=== PATIENT | male | born 1960 | race Caucasian/White ===

== ENCOUNTER 2024-09-18 14:44 | Emergency (ER) | payer OTHER, SELFPAY ==
[2024-09-18 14:51] VITALS: BP 150/85; PULSE 93; RESP 16; TEMP 36.8; O2SAT 99
--- NOTE | 2024-09-18 15:10 | ED.GENADULT ---
HPI - General Adult General Chief complaint: Abdominal Pain Stated complaint: ABD HERNIA Time Seen by Provider: 09/18/24 14:57 Source: patient and RN notes reviewed Mode of arrival: ambulatory Limitations: no limitations History of Present Illness HPI narrative: Patient presents today complaining of pain and redness to his umbilical hernia x4 days that has been worsening since onset. Hernia has been present for 3 years and has never been painful. He is also complaining of constipation and bloating sensation over the past week. Related Data Home Medications ?Medication ?Instructions ?Recorded ?Confirmed ?Last Taken ?Type albuterol sulfate 90 mcg/actuation 1 puff inhalation Q4H PRN 03/05/22 06/30/24 Unknown History aerosol inhaler (ProAir HFA) umeclidinium 62.5 mcg-vilanterol 1 inh inhalation DAILY 03/05/22 09/18/24 Unknown History 25 mcg/actuation powdr for inhalation (Anoro Ellipta) ascorbic acid (vitamin C) 1,000 mg 1 g PO DAILY 06/30/24 06/30/24 Unknown History capsule cholecalciferol (vitamin D3) 25 25 mcg PO DAILY 06/30/24 06/30/24 Unknown History mcg (1,000 unit) capsule fluticasone propionate 50 1 spray intranasal DAILY 06/30/24 06/30/24 Unknown History mcg/actuation nasal spray,suspension (Flonase Allergy Relief) lactobacillus combination no.9 4 4,000 mmu cells PO DAILY 06/30/24 06/30/24 Unknown History billion cell capsule (Adult 50 Plus Probiotic) omeprazole 20 mg capsule,delayed 20 mg PO DAILY 06/30/24 06/30/24 Unknown History release zinc sulfate 50 mg zinc (220 mg) 50 mg PO DAILY 06/30/24 06/30/24 Unknown History tablet Allergies Allergy/AdvReac Type Severity Reaction Status Date / Time fluticasone furoate (From AdvReac thrush Verified 09/18/24 14:48 Breo Ellipta) vilanterol (From Breo AdvReac thrush Verified 09/18/24 14:48 Ellipta) PMFSH Past Medical History Medical History GERD (gastroesophageal reflux disease) COPD exacerbation Chronic obstructive pulmonary disease Surgical History Surgical History (Reviewed 09/18/24 @ 15:11 by Marta Jean-Baptiste, [facility], ) H/O inguinal hernia repair Social History Social History (Reviewed 09/18/24 @ 15:11 by Marta Jean-Baptiste, [facility], ) Social History: 06/23/24 very confident with medical forms Smoking status: Never smoker Alcohol intake: current Substance use: never Substance use type: does not use Do You Feel Safe in your Home?: Yes Lack of Transportation: No Lack of Food: Never True Current Housing: I Have Housing Concerned About Future Housing: No Difficulty Paying Gas/Electric Bills: No Difficulty Paying for Meds: No Currently Unemployed: No Education: Associate Degree Difficulty w/ Childcare or Family Care: No Living arrangements: with family Occupation/Education: occupation 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 Please see nursing chart for further information. There is no relevant family history pertinent to the presenting complaint Exam Narrative: GENERAL: Well-appearing, well-nourished, and in no acute distress. HEAD: Normocephalic, atraumatic. EYES: EOMI. No redness or drainage. Conjunctivae normal. ENT: Mucous membranes pink and moist. NECK: Normal AROM. CHEST: No respiratory distress. Clear to auscultation. HEART: Regular rate and rhythm. No murmur appreciated. ABDOMEN: Soft, nondistended, hyperactive bowel sounds throughout. Obvious umbilical hernia that is erythematous and firm to touch. Not reducible. Tender to palpation. Remainder of abdomen is nontender. EXTREMITIES: Normal range of motion. No edema. SKIN: Warm, dry, no rash. Capillary refill normal. Normal skin turgor. NEURO: No focal deficits. Alert and oriented x3. Gait steady. PSYCH: Normal affect. No signs of depression or anxiety. Course Course Level of Care: Express Care Visit Vital Signs Vital signs: Vital Signs Temperature 98.2 F 09/18/24 14:51 Pulse Rate 93 09/18/24 14:51 Respiratory Rate 16 09/18/24 14:51 Blood Pressure 150/85 H 09/18/24 14:51 Pulse Oximetry 99 09/18/24 14:51 Temperature 98.2 F 09/18/24 14:51 Pulse Rate 93 09/18/24 14:51 Respiratory Rate 16 09/18/24 14:51 Blood Pressure 150/85 H 09/18/24 14:51 Pulse Oximetry 99 09/18/24 14:51 Reviewed Transfer Transfered to: [facility] Transportation: Other (Private vehicle) Transfer rationale: Incarcerated umbilical hernia. Accepting physician: Andrews. Report given to Giovanni Lima NP Medical Decision Making MDM Narrative Medical decision making narrative: 64-year-old male patient presents today with painful umbilical hernia x4 days. Hernia been present for the past 3 years without issue. Upon exam, hernia is irreducible and firm as well as erythematous. Due to limitations of [facility], patient will be transferred to the emergency department at [facility] for further evaluation. Vital signs stable. Patient placed NPO. Differential Diagnosis Differential Diagnosis: Hernia, bowel obstruction Vital Signs Vital Signs: Vital Signs Temperature 98.2 F 09/18/24 14:51 Pulse Rate 93 09/18/24 14:51 Respiratory Rate 16 09/18/24 14:51 Blood Pressure 150/85 H 09/18/24 14:51 Pulse Oximetry 99 09/18/24 14:51 Temperature 98.2 F 09/18/24 14:51 Pulse Rate 93 09/18/24 14:51 Respiratory Rate 16 09/18/24 14:51 Blood Pressure 150/85 H 09/18/24 14:51 Pulse Oximetry 99 09/18/24 14:51 Critical Care Time Critical Care Time Critical Care Time: No Discharge Plan Discharge Clinical Impression: Incarcerated umbilical hernia Patient Disposition: Acute Care Hospital Condition: Stable Instructions: Antibiotic Form Patient Language: [place] Citizen Prescriptions: No Action albuterol sulfate [ProAir HFA] 90 mcg/actuation HFA aerosol inhaler 1 puff inhalation Q4H PRN Anoro Ellipta 62.5-25 mcg/actuation blister with device 1 inh inhalation DAILY zinc sulfate 50 mg zinc (220 mg) tablet 50 mg PO DAILY cholecalciferol (vitamin D3) 25 mcg (1,000 unit) capsule 25 mcg PO DAILY ascorbic acid (vitamin C) 1,000 mg capsule 1 g PO DAILY fluticasone propionate [Flonase Allergy Relief] 50 mcg/actuation spray,suspension 1 spray intranasal DAILY Rx Instructions: administer into each nostril Adult 50 Plus Probiotic 4 billion cell capsule 4,000 mmu cells PO DAILY Rx Instructions: administer with a meal omeprazole 20 mg capsule,delayed release(DR/EC) 20 mg PO DAILY (DME) blood-glucose meter Misc See Rx Instructions .ROUTE .MEDSUPPLY Qty: 1 0RF Rx Instructions: As directed (DME) lancets Misc See Rx Instructions .ROUTE .MEDSUPPLY Qty: 100 1RF Rx Instructions: use to test sugars BID (DME) blood sugar diagnostic Strip See Rx Instructions .ROUTE .MEDSUPPLY Qty: 100 2RF Rx Instructions: test sugars BID prednisone 10 mg tablet 10 mg PO DIRECTED Qty: 18 0RF Rx Instructions: see taper instructions: take 3 tabs x 3 days, take 2 tabs x 3 days, take 1 tab x 3 days. Follow-up/Referrals: Yamilet Centeno PA-C [Primary Care Provider] - Time of Disposition: 15:10
== END 2024-09-18 15:11 | disposition short-term general hospital (02) ==
PROVIDERS: Emergency Provider Nurse Practitioner; PCP Physician Assistant Medical
DX: K42.0 Umbilical hernia with obstruction, without gangrene (principal); J44.9 Chronic obstructive pulmonary disease, unspecified; K21.9 Gastro-esophageal reflux disease without esophagitis
CPT/HCPCS: 99212; G0463

== ENCOUNTER 2024-09-18 15:29 | Emergency (ER) | payer OTHER, SELFPAY ==
--- NOTE | ~2024-09-18 | CT_ITS ---
EXAMINATION: CT abdomen pelvis w con DATE: 09/18/2024 17:39 INDICATION: irreducible umbilical hernia; erythema/tender TECHNIQUE: Computed tomography (CT) of the abdomen and pelvis was performed with 100 mL Omnipaque-350 intravenous contrast. Automated exposure control and iterative reconstruction technique were employe d. The dose-length product was 480.38 mGy-cm. COMPARISON: None. FINDINGS: Lower thorax: Calcified right lower lobe granuloma. Liver: Scattered subcentimeter hypodensities, most likely represent cysts or hemangiomas Biliary/Gallbladder: Cholelithiasis. No inflammatory changes. No bile duct dilation. Pancreas: No mass or duct dilation. Spleen: Normal. Adrenals:No mass. Kidneys: No suspicious mass, obstructing stone, or hydronephrosis. 3 mm nonobstructing right lower po le calcification. Punctate nonobstructing left upper and midpole calcifications. Scattered hypodensit ies, too small to characterize but most likely represent cysts GI tract: Mild distal esophageal and gastric wall edema. Small hiatal hernia. No small or large bowel dilation. Normal appendix. Diverticulosis without diverticulitis. Mesentery/Peritoneum: No ascites, mass, or free air. Retroperitoneum: No mass. Pelvis: Pelvic organs are within normal limits. Soft Tissues: Moderate sized fat-containing hernia with mild inflammatory change. 1.6 cm hernia neck. Small uncomplicated fat-containing bilateral inguinal hernias. Bones: No acute osseous finding. IMPRESSION: Mild esophagitis/gastritis. Moderate sized, fat-containing umbilical hernia with mild inflammatory change. Reviewed, dictated and finalized at location K.
[2024-09-18 15:30] VITALS: BP 149/86; PULSE 100; RESP 16; TEMP 36.5; O2SAT 100
--- OUTSIDE RECORDS SUMMARY | 2024-09-18 15:31 | XMS_ITS | Encounter Summary ---
Author Organization [facility] Address [facility] [place] [address] Care Team Providers Care Multigraph Operator Name Role Phone Dez Flannery MD Primary Care Provider [phone] Yamilet Centeno Primary Care Provider [phone] Encounter Details Date Type Department Care Team (Late st Contact Info) Description 02/11/2021 Prep for Procedure [facility] [address] [place] [address] [place] [address] [facility] [address] [place] [address] Social History Tobacco Use Types Packs/Day Years Used Date Smoking Tobacco: Never Smokeless Tobacco: Never Alcohol Use Standard Drinks/Week Comments Yes 3.3 (1 standard drink = 0.6 oz p ure alcohol) AUDIT-C Answer Date Recorded Frequency of Alcohol Consumption Monthly or less 06/29/2018 Average Number of Drinks 1 or 2 019 Frequency of Binge Drinking Monthly 06/02 Sex and Gender Information Value Date Recorded Sex Assigned at Male 06/25/2024 10:16 AM CDT Legal Sex Male 7:14 PM CDT Gender Identity Not on file Sexual Orientation Not on file COVID-19 Exposure Response Date Recorded In the last month, have you been in contact with someone who was confirmed or suspected to have Coronavirus / COVID-19? No / Unsure 02/12/2021 4:38 PM CERNER ANALYST documented as of this encounter Plan of Treatment Upcoming Encounters Date Type Department Care Team (Late st Contact Info) Description 02/14/2025 8:20 AM CERNER ANALYST Office Visit [facility] [address] [place] [address] Larry Carlson MD [address] [place] [phone] documented as of this encounter Results * MRSA SCREENING (02/12/2021 4:45 PM CERNER ANALYST) SPEC DESCRIPTION NASAL 02/12/2021 4:40 PM CERNER ANALYST [facility] SPECIAL REQUESTS NO SPECIAL REQUEST 02/12/2021 4:40 PM CERNER ANALYST [facility] CULTURE RESULT NO METHICILLIN RESISTANT STAPHYLOCOCCUS AUREUS ISOLATED 02/14/2021 7:32 AM CERNER ANALYST [facility] SPECIMEN FROM INTERNAL NOSE / Unknown 02/12/2021 4:45 PM CERNER ANALYST 02/12/2021 4:46 PM CERNER ANALYST us Kodak Whitten MD MICROBIOLOGY - GENERAL ORDERABLE S Final Result Performing Organization Address City/State/[facility] Co de Phone Number [facility] [address] [place] [address], [place] [phone] [facility] [address] [place] [address], [place] [phone] documented in this encounter Visit Diagnoses Diagnosis Pre-op testing- Primary Preoperative examination, unspecified documented in this encounter Additional Health Concerns Infection Onset Date Last Indicated Resolved Time Respiratory Rule Out 06/25/2024 06/25/20242 025 10:41 AM CDT COVID-19 Rule Out 06/25/2024 06/25/2024 06/25/2024 10:36 AM CDT documented as of this encounter Care Teams Multigraph Operator Relationship Specialty Start Date End Date Dez Flannery MD PCP - General INTERNAL MEDICINE 03/01/18 06/24/24 Yamilet Centeno PA [address] [place] [id number] PCP - General PHYSICIAN SALVAGE MACHINE OPERATOR 06/25/24 documented as of this encounter
--- OUTSIDE RECORDS SUMMARY | 2024-09-18 15:31 | XMS_ITS | Encounter Summary ---
Author Organization [facility] Address [facility] [place] [address] Care Team Providers Care Medical Office Manager Name Role Phone Dez Flannery MD Primary Care Provider [phone] Yamilet Centeno Primary Care Provider [phone] Encounter Details Date Type Department Care Team (Late st Contact Info) Description 08/15/2019 Prep for Procedure [facility] Day [facility] [address] [place], [place] [phone] Marek Morley MD [address] [place] [id number] Social History Tobacco Use Types Packs/Day Years [...] have Coronavirus / COVID-19? No / Unsure 08/16/2019 7:03 AM CDT documented as of this encounter Plan of Treatment Upcoming Encounters Date Type Department Care Team (Late st Contact Info) Description 02/14/2025 8:20 AM RETAIL WORKER Office Visit [facility] [address] [address] Larry Carlson MD [address] [place] [id number] documented as of this encounter Results * PRE-SURGICAL/PRE-PROCEDURE CORONAVIRUS (COVID 19) (08/16/2019 7:21 AM CDT) CORONAVIRUS SARS COV 2 PCR (RESP) NOT DETECTED NOT DETECTED 08/17/2019 6:24 PM CDT [facility] Comment: A Not Detected (negative) test result for this test means that SARS- CoV-2 RNA was not present in the specimen above the limit of detection. A negative result does not rule out the possibility of COVID-19 and should not be used as the sole basis for treatment or patient management decisions. If COVID-19 is still suspected, based on exposure history together with other clinical findings, re-testing should be considered in consultation with public health authorities. Laboratory test results should always be considered in the context of clinical observations and epidemiological data in making a final diagnosis and patient management decisions. Please review the Fact Sheets and FDA authorized labeling available for health care providers and patients using the following websites: https://[email or web address]/[email or web address]-19/[email or web address]/fact-sheet2 https://[email or web address].UCWeb/home/Covid-19/Patients/NAAT/ fact-sheet2 This test has been authorized by the FDA under an Emergency Use Authorization (EUA) for use by authorized laboratories. Due to the current public health emergency, [facility] is receiving a high volume of samples from a wide variety of swabs and media for COVID-19 testing. In order to serve patients during this public health crisis, samples from appropriate clinical sources are being tested. Negative test results derived from specimens received in non-commercially manufactured viral collection and transport media, or in media and sample collection kits not yet authorized by FDA for COVID-19 testing should be cautiously evaluated and the patient potentially subjected to extra precautions such as additional clinical monitoring, including collection of an additional specimen. Methodology: Nucleic Acid Amplification Test (NAAT) includes PCR or TMA Additional information about COVID-19 can be found at the [facility] website: www.[facility].me/Covid19. Test performed at [facility] [id number] [place] [phone] Director: ZABRINA WOLFE DO,MPH NASOPHARYNGEAL SWAB / Unknown 08/16/2019 7:21 AM CDT us Marek Morley MD MICROBIOLOGY - GENERAL ORDERABLE S Final Result [facility] [address] [id number] documented in this encounter Visit Diagnoses Diagnosis Preoperative testing- Primary Preoperative examination, unspecified documented in this encounter Additional Health Concerns Infection Onset Date Last Indicated Resolved Time COVID-19 Rule Out 08/16/2019 08/16/2019 08/17/2019 6:24 PM CDT COVID-19 Rule Out 04/08/2020 04/08/2020 04/09/2020 3:18 PM RETAIL WORKER Respiratory Rule Out 06/25/2024 06/25/2024 025 10:41 AM CDT COVID-19 Rule Out 06/25/2024 06/25/2024 06/25/2024 10:36 AM CDT documented as of this encounter Care Teams Medical Office Manager Relationship Specialty Start Date End Date Dez Flannery MD PCP - General INTERNAL MEDICINE 03/01/18 06/24/24 Yamilet Centeno PA [address] [place] [id number] PCP - General PHYSICIAN FILLER SPREADER 06/25/24 documented as of this encounter
--- OUTSIDE RECORDS SUMMARY | 2024-09-18 15:32 | XMS_ITS | Clinical Summary ---
Author Organization [facility] Address [address] [place] [address] Care Team Providers Care Room Service Supervisor Name Role Phone Yamilet Centeno Primary Care Provider [phone] Allergies No known active allergies Medications vitamin D3, cholecalciferol , 1000 UNIT Tab tablet Take 1 tablet (25 mcg total) by mouth daily. Active albuterol sulfate HFA 108 (90 Base) MCG/ACT inhalerIndicati ons:Chronic bronchitis, unspecified chronic bronchitis type ([facility] HHS/HCC) Inhale 1-2 puffs into the lungs every 4 (four) hours as needed for Wheezing or Shortness of breath. 18 g 5 3 Active Albuterol-Budes onide (AIRSUPRA) 90-80 MCG/ACT AerosolIndicati ons:Chronic bronchitis, unspecified chronic bronchitis type ([facility] HHS/HCC) Inhale 2 puffs into the lungs every 4 (four) hours as needed. 10.7 g 11 4 Active ANORO ELLIPTA 62.5-25 MCG/ACT inhalerIndicati ons:Abnormal PFT Inhale 1 puff into the lungs daily. 1 each 11 4 Active fluticasone propionate (FLONASE) 50 MCG/ACT nasal sprayIndication s:Chronic bronchitis, unspecified chronic bronchitis type ([facility]CC HHS/HCC) 1 spray by Nasal route daily. 16 g 11 4 Active ipratropium-alb uterol (DUONEB) 0.5-2.5 (3) MG/3ML SolutionIndicat ions:Chronic bronchitis, unspecified chronic bronchitis type ([facility]) Take 3 mLs by nebulization every 6 (six) hours as needed (shortness of breath, wheezing). 360 mL 2 4 Active Active Problems Problem Noted Date Diagnosed Date Unilateral inguinal hernia, without obstruction or gangrene, not specified as recurrent 02/05/2021 Overview (02/05/2021): Added automatically from request for surgery [id number] Diffusion capacity of lung (dl), decreased 05/09 Occupational exposure to dust 03/01/2018 Abnormal PFT 03/01/2018 Chronic bronchitis, unspecif ied chronic bronchitis type ([facility]) 03/01/2018 Disorder of lung 06/16/2013 Acute bronchitis 12/22/2011 Resolved Problems Problem Noted Date Diagnosed Date Resolved Date Gastroesophageal reflux dise ase, esophagitis presence not specified 03/01/2018 01/31/2021 Encounter for preventive health examination 12/22/2011 11/11/2019 Encounters Date Type Department Care Team Description 06/25/2024 10:12 AM CDT - 06/25/2024 2:22 PM CDT Emergency [facility] Emergency Room [id number] [place] [address] Emmanuel Griggs MD Chest Pain Discharge Disposition: Home or Self Care (Routine Discharge) 06/25/2024 Travel from Last 3 Months Immunizations Immunization Administration Dates Next Due Afluria 36 MONTHS+ (Prefille d Syringe IIV4) 11/17/2018 Fluzone 6 Months+ Quad (0.5 mL Prefilled Syringe) 10/22/2019 Hepatitis B 11/25/1993 Hepatitis B (Generic: Adult) 11/25/1993 Influenza (Fluvirin) 11/26/2016 Influenza (Generic) 11/27/2017, 7,12/25/2015,2014,11/10/2013 Influenza Adult (Generic) 10/31/2020,11/2019,10/22/2019,2018,11/17/2018 Family History Medical History Relation Comments Heart Father Migraines/Headaches Mother Relation Status Comments Father Mother Social History Tobacco Use Types Packs/Day Years Used Date Smoking Tobacco: Never Smokeless Tobacco: Never Tobacco Cessation:Counseling Given: No Alcohol Use Standard Drinks/Week Comments Yes 3.3 (1 standard drink = 0.6 oz p ure alcohol) occasionally AUDIT-C Answer Date Recorded Frequency of Alcohol Consumption Monthly or less 06/29/2018 Average Number of Drinks 1 or 2 019 Frequency of Binge Drinking Monthly 06/02 PHQ-2 Answer Date Recorded Patient Health Questionnaire-2 Score 0 01/13/2023 Sex and Gender Information Value Date Recorded Sex Assigned at Male 06/25/2024 10:16 AM CDT Legal Sex Male 7:14 PM CDT Gender Identity Not on file Sexual Orientation Not on file Last Filed Vital Signs Vital Sign Reading Time Taken Comments Blood Pressure 127/81 06/25/2024 2:21 PM CDT Pulse 77 06/25/2024 2:21 PM CDT Temperature 36.9 C (98.5 F) 06/25/2024 10:07 AM CDT Respiratory Rate 13 06/25/2024 2:21 PM CDT Oxygen Saturation 96% 06/25/2024 2:21 PM CDT Inhaled Oxygen Concentration - - Weight 87.9 kg (193 lb 12.6 oz) 025 10:00 AM CDT Height 182.9 cm (6') 06/25/2024 10:00 AM CDT Body Mass Index 26.28 06/25/2024 10:00 AM CDT Plan of Treatment Upcoming Encounters Date Type Department Care Team (Late st Contact Info) Description 02/14/2025 8:20 AM [employer] Office Visit [facility] [place] [address] [place] [phone] Larry Carlson MD [address] [place] [phone] Health Maintenance Due Date Last Done Comments Annual Physical 1963 Hepatitis C 08/04/1979 DTaP, Tdap and Td Vaccines ( 1 - Tdap) 1980 Pneumococcal Vaccine: 50+ Years (1 of 2 - PCV) 1980 Zoster Vaccines (1 of 2) 08/04/2011 RSV Immunization or 60+ Years (1 - Risk 60-74 years 1-dose series) 2021 COVID-19 Vaccine (4 - 2023-2 5 season) 2023 02/01/2021, 06/01/2020, 05/13/2020 PHQ-2 (Physician Robinson) 03/02/2024 01/13/2023 Colorectal Cancer Screening Colonoscopy (10 Years) 08/18/2029 08/19/2019 Meningococcal B Vaccine Aged Out No l onger eligible based on patient's age to complete this topic Meningococcal Vaccine Aged Out No jaime nohemy eligible based on patient's age to complete this topic RSV Immunizations Under 20 Months Aged Out No longer eligible b ased on patient's age to complete this topic Medical Devices Implanted Type Area As400 Programmer Analyst Device Identifier Shelf Expiration Date Model / Serial / Lot Plug Large Light Mesh - [id number] Implanted:Qty: 1 on 02/21/2021 by Kodak Whitten MD at [facility] Mesh Right: Inguinal [employer] 07/27/2025 [id number] / / [id number] Mesh Surgical Bard Marlex 4x1.8in Groin Monofilament Gold Standard Preshape Sterile Polypropylene Rectangle Inguinal Hernia Repair - [id number] Implanted:Qty: 1 on 02/21/2021 by Kodak Whitten MD at [facility] Mesh Right: Inguinal [employer] 11/27/2024 [id number] / / [id number] Procedures Procedure Name Priority Date/Time Associated Diagnosis Comments LACTIC ACID W REFLEX (SEPSIS) STAT 06/25/2024 1:41 PM CDT TROPONIN, QUANT STAT 06/25/2024 12:10 PM CDT LACTIC ACID W REFLEX (SEPSIS) TIMED 06/25/2024 10:57 AM CDT URINALYSIS, AUTO, COMPLETE STAT 06/25/2024 10:45 AM CDT XR CHEST PA+LAT STAT 06/25/2024 10:24 AM CDT CORONAVIRUS (COVID 19) STAT 10:10 AM CDT RESP SYNCYTIAL VIRUS STAT 06/25/2024 10:10 AM CDT INFLUENZA A & B STAT 06/25/2024 10:10 AM CDT TSH W/REFLEX STAT 06/25/2024 10:10 AM CDT MAGNESIUM STAT 06/25/2024 10:10 AM CDT PRO-BRAIN NATRIURETIC PEPTIDE STAT 06/25/2024 10:10 AM CDT TROPONIN, QUANT STAT 06/25/2024 10:10 AM CDT LACTIC ACID W REFLEX (SEPSIS) STAT 06/25/2024 10:10 AM CDT COMPREHENSIVE METABOLIC PANEL STAT 06/25/2024 10:10 AM CDT D-DIMER, QUANTITATIVE STAT 06/25/2024 10:10 AM CDT CBC W/DIFF AUTOMATED STAT 06/25/2024 10:10 AM CDT ECG 12-LEAD Routine 06/25/2024 10:03 AM CDT from Last 3 Months Results * LACTIC ACID W REFLEX (SEPSIS) (06/25/2024 1:41 PM CDT) Only the most recent of3 resultswithin the time period is included. LACTIC ACID VENOUS 1.2 0.4 - 2.0 MMOL/L 06/25/2024 2:04 PM CDT [facility] 06/25/2024 1:41 PM CDT Emmanuel Griggs MD LABORATORY Final Resu lt Performing Organization Address [facility]/ZIP Co de Phone Number [facility] [address] [place] [address], [place] [phone] * TROPONIN, QUANT (06/25/2024 12:10 PM CDT) Only the most recent of2 resultswithin the time period is included. TROPONIN I HIGH SENSITIVITY 6 0 - 75 ng/L 06/25/2024 12:37 PM CDT [facility] Comment: HIGH DOSES OF BIOTIN, TROPONIN-SPECIFIC AUTOANTIBODIES, AND ANTIBODY THERAPY CONTAINING HAMA MAY INTERFERE WITH THIS TEST RESULT. CORRELATION TO CLINICAL HISTORY AND PRESENTATION RECOMMENDED. 06/25/2024 12:1 0 PM CDT Emmanuel Griggs MD LABORATORY Final Resu lt Performing Organization Address [facility] Co de Phone Number [facility] [address] [place] [address], [place] [phone] * URINALYSIS, AUTO, COMPLETE (06/25/2024 10:45 AM CDT) COLOR (U) YELLOW 06/25/2024 11:10 AM CDT [facility] TRANSPARENCY HAZY 06/25/2024 11:10 AM CDT [facility] SPECIFIC GRAVITY (U) 1.020 1.000 - 1.030 06/25/2024 11:10 AM CDT [facility] U PH 7.0 5.0 - 9.0 06/25/2024 11:10 AM CDT [facility] LEUKOCYTES (U) NEGATIVE NEGATIVE 06/25/2024 11:10 AM CDT [facility] NITRITES NEGATIVE NEGATIVE 06/25/2024 11:10 AM CDT [facility] PROTEIN RANDOM (U) NEGATIVE NEGATIVE 06/25/2024 11:10 AM CDT [facility] GLUCOSE (U) NEGATIVE NEGATIVE 06/25/2024 11:10 AM CDT [facility] KETONES MG/DL (U) NEGATIVE NEGATIVE 06/25/2024 11:10 AM CDT [facility] BILIRUBIN (U) NEGATIVE NEGATIVE 06/25/2024 11:10 AM T [facility] BLOOD (U) NEGATIVE NEGATIVE 06/25/2024 11:10 AM CDT [facility] WBC/HPF NONE SEEN 0 - 5 /HPF 06/25/2024 11:10 AM CDT [facility] RBC/HPF NONE SEEN 0 - 5 /HPF 06/25/2024 11:10 AM T [facility] EPI/HPF FEW /HPF 06/25/2024 11:10 AM T [facility] CRYSTALS (U) MODERATE /HPF 06/25/2024 11:10 AM CDT [facility] Comment:AMORPHOUS MATERIAL URINE SPECIMEN OBTAINED BY CLEAN CATCH PROCEDURE / Unknown 06/25/2024 10:45 AM CDT us Emmanuel Griggs MD URINE ORDERABLES Final Res ult [facility] [address] [place] [address], * XR CHEST PA+LAT (06/25/2024 10:24 AM CDT) Anatomical Region Laterality Modality Chest Radiographic Christine ging 06/25/2024 10:3 9 AM CDT Impressions 06/25/2024 10:41 AM CDT IMPRESSION:===== Stable unremarkable two-view chest; no radiographic evidence of acute/active cardiopulmonary disease. Referred By: Interpreted By: Darek Mckeon MD, 06/25/2024 10:39 AM Narrative 06/25/2024 10:41 AM CDT [facility] [address] [place] [address] Examination: Chest x-ray 2 view Exam date/time: 06/25/2024 10:22 AM Indication: 63 male chest discomfort. Heaviness Comparison: Chest x-ray 06/02/2022 Technique: Frontal and lateral view chest. Findings: Stable normal cardiac size. Normal position of the trachea. Heart and mediastinal contours are within normal limits. Pulmonary vascularity is normal. The lungs and pleural spaces are radiographically clear. No consolidation, effusion or pneumothorax. Thoracic vertebral body minor ventral endplate degenerative spurring. Unremarkable upper abdomen. Overlying precordial leads ===== Procedure Note Darek Mckeon MD - 06/25/2024 [facility] [address] [place] [address] Examination: Chest x-ray 2 view Exam date/time: 06/25/2024 10:22 AM Indication: 63 male chest discomfort. Heaviness Comparison: Chest x-ray 06/02/2022 Technique: Frontal and lateral view chest. Findings: Stable normal cardiac size. Normal position of the trachea.Heart and mediastinal contours are within normal limits. Pulmonaryvascularity is normal. The lungs and pleural spaces are radiographically clear. Noconsolidation, effusion or pneumothorax. Thoracic vertebral body minor ventral endplate degenerative spurring. Unremarkable upper abdomen. Overlying precordial leads ===== IMPRESSION:===== Stable unremarkable two-view chest; no radiographic evidence ofacute/active cardiopulmonary disease. Referred By: Interpreted By: Darek Mckeon MD, 06/25/2024 10:39 AM us Emmanuel Griggs MD GENERAL IMAGING Final Resu lt * CORONAVIRUS (COVID-19) MOLECULAR (06/25/2024 10:10 AM CDT) CORONAVIRUS SARS COV 2 RNA NEGATIVE NEGATIVE 06/25/2024 10:36 AM CDT [facility] Comment: NEGATIVE RESULTS DO NOT RULE OUT COVID 19 AND SHOULD NOT BE USED THE SOLE BASIS FOR TREATMENT OR PATIENT MANAGEMENT DECISIONS, INCLUDING INFECTION CONTROL DECISIONS. NEGATIVE RESULTS SHOULD BE CONSIDERED IN THE CONTEXT OF A PATIENT'S RECENT EXPOSURES, HISTORY AND THE PRESENCE OF CLINICAL SIGNS AND SYMPTOMS CONSISTENT WITH COVID 19. THE ID NOW COVID-19 2.0 TEST HAS BEEN AUTHORIZED BY THE FDA UNDER EAU FOR USE BY AUTHORIZED LABORATORIES. PERFORMED BY NUCLEIC ACID AMPLIFICATION FOR MOLECULAR QUALITATIVE DETECTION OF SARS-COV-2. SPECIMEN TYPE NASAL 06/25/2024 10:16 AM CDT [facility] NASOPHARYNGEAL SWAB / Unknown 06/25/2024 10:10 AM CDT Emmanuel Griggs MD MICROBIOLOGY - GENERAL ORD ERABLES Final Result Performing Organization Address City/[facility]/ZIP Co de Phone Number [facility] [address] [place] [address], [place] [phone] * TSH W/REFLEX (06/25/2024 10:10 AM CDT) TSH 1.543 0.358 - 3.74 uIU/ML 06/25/2024 10:42 AM CDT [facility] Comment: HIGH DOSES OF BIOTIN MAY INTERFERE WITH THIS TEST RESULT. CORRELATION TO CLINICAL HISTORY AND PRESENTATION RECOMMENDED. FREE T4 NOT INDICATED 06/25/2024 10:1 0 AM CDT Emmanuel Griggs MD LABORATORY Final Resu lt Performing Organization Address City/[facility]/ZIP Co de Phone Number [facility] [address] [place] [address], [place] [phone] * (ABNORMAL) PRO-BRAIN NATRIURETIC PEPTIDE (06/25/2024 10:10 AM CDT) PRO-B TYPE NATRIURETIC PEPTIDE 132(H) <125 PG/ML 06/25/2024 10:42 AM CDT [facility] Comment: CUT POINTS ESTABLISHED BY INTERNATIONAL COLL[employer]AT[employer] ON NT PROBNP (ICON) STUDY (2006). AGE INDEPENDENT: <300 PG/ML HAS A 99% NEGATIVE PREDICTIVE VALUE FOR EXCLUDING ACUTE CHF <50 YEARS: >450 PG/ML IS CONSISTENT WITH ACUTE CHF 50-75 YEARS: >900 PG/ML IS CONSISTENT WITH ACUTE CHF >75 YEARS: >1800 PG/ML IS CONSISTENT WITH ACUTE CHF IN PATIENTS WITH RENAL INSUFFICIENCY (GFR <60), >1200 PG/ML YIELDS A DIAGNOSTIC SENSITIVITY AND SPECIFICITY OF 89% AND 72% FOR ACUTE CHF. 06/25/2024 10:1 0 AM CDT Emmanuel Griggs MD LABORATORY Final Resu lt [facility] [address] [place] [address], [place] [phone] * INFLUENZA A & B (06/25/2024 10:10 AM CDT) SPECIMEN TYPE NASOPHARYNGEAL SWAB 06/25/2024 10:18 AM CDT [facility] INFLUENZA A NEGATIVE NEGATIVE 06/25/2024 10:40 AM CDT [facility] INFLUENZA B NEGATIVE NEGATIVE 06/25/2024 10:40 AM CDT [facility] NASAL NASOPHARYNGEAL SWAB / Unknown 06/25/2024 10:10 AM CDT us Emmanuel Griggs MD MICROBIOLOGY - GENERAL ORD ERABLES Final Result Performing Organization Address City/[facility]/ZIP Co de Phone Number [facility] [address] [place] [address], [place] [phone] * RESP SYNCYTIAL VIRUS (06/25/2024 10:10 AM CDT) SPECIMEN TYPE NASOPHARYNGEAL SWAB 06/25/2024 10:16 AM CDT [facility] RAPID RSV NEGATIVE NEGATIVE 06/25/2024 10:40 AM CDT [facility] NASOPHARYNGEAL SWAB / Unknown 06/25/2024 10:10 AM CDT us Emmanuel Griggs MD MICROBIOLOGY - GENERAL ORD ERABLES Final Result [facility] [address] [place] [address], [place] [phone] * (ABNORMAL) COMPREHENSIVE METABOLIC PANEL (06/25/2024 10:10 AM CDT) GLUCOSE 227(H) 70 - 99 MG/DL 06/25/2024 10:42 AM CDT [facility] BUN 12 7 - 18 MG/DL 06/25/2024 10:42 AM CDT [facility] CREATININE S/P/B 1.25 0.7 - 1.3 MG/DL 06/25/2024 10:42 AM CDT [facility] SODIUM S/P/B 139 136 - 145 MMOL/L 06/25/2024 10:42 AM CDT [facility] POTASSIUM S/P/B 3.5 3.5 - 5.1 MMOL/L 06/25/2024 10:42 AM CDT [facility] CHLORIDE S/P/B 103 100 - 108 MMOL/L 06/25/2024 10:42 AM CDT [facility] CO2 27.2 21 - 32 MMOL/L 06/25/2024 10:42 AM CDT [facility] CALCIUM S/P/B 9.5 8.5 - 10.1 MG/DL 06/25/2024 10:42 AM [facility] BILIRUBIN TOTAL S/P/B 0.7 0.2 - 1.2 MG/DL 06/25/2024 10:42 AM [facility] TOTAL PROTEIN S/P/B 6.8 6.4 - 8.2 G/DL 06/25/2024 10:42 AM [facility] ALBUMIN S/P/B 3.7 3.4 - 5.0 G/DL 06/25/2024 10:42 AM [facility] AST 22 15 - 37 U/L 06/25/2024 10:42 AM [facility] ALT 26 16 - 60 U/L 06/25/2024 10:42 AM [facility] ALKALINE PHOSPHATASE S/P/B 93 50 - 136 U/L 06/25/2024 10:42 AM [facility] ANION GAP 8.8 5 - 15 MMOL/L 06/25/2024 10:42 AM [facility] BUN CREATININE RATIO 9.6 6 - 26 06/25/2024 10:42 AM [facility] A/G RATIO 1.2 1.0 - 2.0 RATIO 06/25/2024 10:42 AM [facility] GFR ESTIMATE 65(L) >90 ML/MIN/1.7 3 M2 06/25/2024 10:42 AM [facility] Comment: NOTE: eGFR is not calculated for patients <18 years of age. This is an estimated GFR calculation using the new CKD EPI creatinine equation without race and so does not require a correction factor for race. This estimated GFR should not be used for calculating drug doses. 06/25/2024 10:1 0 AM CDT us Emmanuel Griggs MD LABORATORY Final Resu lt Performing Organization Address City/[facility]/ZIP Co de Phone Number [facility] [address] [place] [address], [place] [phone] * D-DIMER, QUANTITATIVE (06/25/2024 10:10 AM CDT) D-DIMER 392 0 - 500 ng{FEU}/mL 06/25/2024 10:25 AM CDT [facility] Comment: D-Dimer values less than or equal to 500 ng/mL FEU have a negative predictive value of >95% for exclusion of deep vein thrombosis and pulmonary embolism. In patients over 50 (who tend to have higher normal baseline D-Dimer values), recent studies suggest age-adjusted D-Dimer cutoff values (calculated as: age [years] x 10 ng/mL) result in equivalent outcomes and no additional false negative findings. 06/25/2024 10:1 0 AM CDT Emmanuel Griggs MD LABORATORY Final Resu lt Performing Organization Address City/[facility]/ZIP Co de Phone Number [facility] [address] [place] [address], [place] [phone] * (ABNORMAL) CBC W/DIFF AUTOMATED (06/25/2024 10:10 AM CDT) WBC 7.66 4.4 - 11.0 x10'3/uL 06/25/2024 10:18 AM CDT [facility] RBC 5.02 4.50 - 5.90 x10'6/uL 06/25/2024 10:18 AM CDT [facility] HGB 16.2 14.0 - 17.5 G/DL 06/25/2024 10:18 AM CDT [facility] HCT 47.4 41.5 - 50.4 % 06/25/2024 10:18 AM [facility] MCV 94.4 80.0 - 96.0 FL 06/25/2024 10:18 AM CDT [facility] MCH 32.3(H) 26.5 - 31.4 PG 06/25/2024 10:18 AM [facility] MCHC 34.2 31.9 - 34.8 G/DL 06/25/2024 10:18 AM [facility] RDW 13.1 12.3 - 14.3 % 06/25/2024 10:18 AM T [facility] PLT 253 151 - 353 x10'3/uL 06/25/2024 10:18 AM [facility] MPV 9.4(L) 9.7 - 11.9 FL 06/25/2024 10:18 AM [facility] RBC MORPHOLOGY NORMAL 06/25/2024 10:18 AM [facility] PLT MORPH. NORMAL 06/25/2024 10:18 AM T [facility] WBC MORPHOLOGY NORMAL 06/25/2024 10:18 AM [facility] LYMPHOCYTES % 26.0 15.8 - 45.0 % 06/25/2024 10:18 AM T [facility] NEUTROPHILS % 65.6 42.1 - 71.9 % 06/25/2024 10:18 AM [facility] MONOCYTES % 6.0 5.7 - 12.5 % 06/25/2024 10:18 AM T [facility] EOSINOPHILS 1.8 0.0 - 5.6 % 06/25/2024 10:18 AM [facility] BASOPHILS 0.5 0.0 - 1.3 % 06/25/2024 10:18 AM T [facility] ABS. NEUTROPHILS 5.02 1.40 - 6.00 x10'3/uL 06/25/2024 10:18 AM CDT [facility] IMMATURE GRANS % 0.1 0.0 - 0.5 % 06/25/2024 10:18 AM CDT [facility] ABS. LYMPHOCYTES 1.99 0.80 - 4.70 x10'3/uL 06/25/2024 10:18 AM CDT [facility] 06/25/2024 10:1 0 AM CDT Emmanuel Griggs MD LABORATORY Final Resu lt [facility] [address] [place] [address], [place] [phone] * MAGNESIUM (06/25/2024 10:10 AM CDT) MAGNESIUM 2.0 1.8 - 2.4 MG/DL 06/25/2024 10:42 AM CDT [facility] 06/25/2024 10:1 0 AM CDT Emmanuel Griggs MD LABORATORY Final Resu lt [facility] [address] [place] [address], [place] [phone] * ECG 12 lead (06/25/2024 10:03 AM CDT) 06/25/2024 10:0 3 AM CDT Narrative [facility] ([facility]) RAD - 06/25/2024 2:28 PM CDT [facility] Test Date: 2024-06-25 Pat Name: ORVILLE MONTEROIA Department: 85 Room: Gender: Male 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: : 1960 Requested By: EMMANUEL GRIGGS Order Number: [id number] Reading : Saqib Munoz Measurements Intervals [place] Rate: 107 P: 58 [place]: 174 QRS: -2 QRSD: 86 T: 33 QT: 324 QTc: 434 Interpretive Statements SINUS TACHYCARDIA WITH OCCASIONAL VENTRICULAR PREMATURE COMPLEXES ABNORMAL RHYTHM ECG Compared to ECG 06/02/2022 19:27:37 Ventricular premature complex(es) now present Sinus rhythm no longer present Procedure Note Saqib Munoz MD - 06/25/2024 [facility] Test Date: 2024-06-25 Pat Name: ORVILLE JACKSON Department: 85 Room: Gender: Male 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: : 1960 Requested By: EMMANUEL GRIGGS Order Number: [id number] Reading MD: Saqib Munoz Measurements Intervals [place] Rate: 107 P: 58 [place]: 174 QRS: -2 QRSD: 86 T: 33 QT: 324 QTc: 434 Interpretive Statements SINUS TACHYCARDIA WITH OCCASIONAL VENTRICULAR PREMATURE COMPLEXES ABNORMAL RHYTHM ECG Compared to ECG 06/02/2022 19:27:37 Ventricular premature complex(es) now present Sinus rhythm no longer present us Emmanuel Griggs MD ECG ORDERABLES Final Resu lt [facility] ([facility]) RAD from Last 3 Months Insurance [employer] Care Teams Room Service Supervisor Relationship Specialty Start Date End Date Yamilet Centeno PA [address] [place] [id number] PCP - General PHYSICIAN BOAT OUTFITTING SUPERVISOR 06/25/24
--- NOTE | 2024-09-18 15:57 | ED.ABDPAIN ---
HPI - Abdominal Pain General Chief Complaint: Abdominal Pain Stated Complaint: umibical hernia Time Seen by Provider: 09/18/24 15:34 Source: patient, family and other (Marta HERRERA at [facility] called report) Limitations: no limitations History of Present Illness HPI narrative: 64-year-old male presents an umbilical hernia that has become more uncomfortable around unable to be area reduced. He notes it feels tender and has been red and swollen. He took 2 Tylenol arthritis prior to arrival. Denies any bleeding. He states he has had both constipation and loose stool. His last bowel movement was at 1:30 p.m.. He denies passing flatus. He is not on anticoagulation. Last oral intake was at 12 noon. No nausea or vomiting but he does feel like he has indigestion/heartburn. Denies any fevers or chills. He has a history of an inguinal hernia repair in Jan 2021 at [facility]. Related Data Home Medications ?Medication ?Instructions ?Recorded ?Confirmed ?Last Taken ?Type albuterol sulfate 90 mcg/actuation 1 puff inhalation Q4H PRN 03/05/22 09/22/24 Unknown History aerosol inhaler (ProAir HFA) umeclidinium 62.5 mcg-vilanterol 1 inh inhalation DAILY 03/05/22 09/22/24 Unknown History 25 mcg/actuation powdr for inhalation (Anoro Ellipta) ascorbic acid (vitamin C) 1,000 mg 1 g PO DAILY 06/30/24 09/22/24 Unknown History capsule cholecalciferol (vitamin D3) 25 25 mcg PO DAILY 06/30/24 09/22/24 Unknown History mcg (1,000 unit) capsule fluticasone propionate 50 1 spray intranasal DAILY 06/30/24 09/22/24 Unknown History mcg/actuation nasal spray,suspension (Flonase Allergy Relief) lactobacillus combination no.9 4 4,000 mmu cells PO DAILY 06/30/24 09/22/24 Unknown History billion cell capsule (Adult 50 Plus Probiotic) omeprazole 20 mg capsule,delayed 20 mg PO DAILY 06/30/24 09/22/24 Unknown History release zinc sulfate 50 mg zinc (220 mg) 50 mg PO DAILY 06/30/24 09/22/24 Unknown History tablet Allergies Allergy/AdvReac Type Severity Reaction Status Date / Time fluticasone furoate (From AdvReac thrush Verified 09/22/24 11:47 Breo Ellipta) vilanterol (From Breo AdvReac thrush Verified 09/22/24 11:47 Ellipta) FOR[facility]LY [facility] Past Medical History Medical History Umbilical hernia GERD (gastroesophageal reflux disease) COPD exacerbation Chronic obstructive pulmonary disease Surgical History Surgical History (Updated 09/23/24 @ 18:09 by Deedee Driver MD) H/O inguinal hernia repair Jan 2021, [facility] Social History Social History (Updated 09/22/24 @ 08:22 by Constantino Atkinson) Social History: 06/23/24 very confident with medical forms 09/23/24 patient declined SDOH Smoking status: Never smoker Alcohol intake: current Substance use: never Substance use type: does not use Do You Feel Safe in your Home?: Yes Lack of Transportation: No Lack of Food: Never True Current Housing: I Have Housing Concerned About Future Housing: No Difficulty Paying Gas/Electric Bills: No Difficulty Paying for Meds: No Currently Unemployed: No Education: Associate Degree Difficulty w/ Childcare or Family Care: No Living arrangements: with family Occupation/Education: occupation 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 EYES: Non injected, non icteric ENT: Nares clear, no rhinorrhea or epistaxis. Gross auditory acuity intact. NECK: Supple. No meningismus. CHEST: Speaking in full sentences. No respiratory distress. HEART: Regular rate and rhythm. . ABDOMEN: Soft, nondistended. No rigidity or guarding. Not peritoneal. Umbilical hernia is not easily reducible, has overlying skin changes with purplish/reddish hue, tender to palpation. EXTREMITIES: Normal range of motion. No lower extremity edema. SKIN: Warm, dry, no rash. NEURO: No focal deficits. Alert and oriented. Answering questions. Following commands. Normal speech without aphasia or dysarthria. PSYCH: Normal mood and affect. Course Vital Signs Vital signs: Vital Signs Temperature 97.7 F 09/18/24 15:30 Pulse Rate 100 09/18/24 15:30 Respiratory Rate 16 09/18/24 15:30 Blood Pressure 149/86 H 09/18/24 15:30 Pulse Oximetry 100 09/18/24 15:30 Oxygen Delivery Room Air 09/18/24 15:30 Temperature 97.7 F 09/18/24 15:30 Pulse Rate 73 09/18/24 19:15 Respiratory Rate 16 09/18/24 19:15 Blood Pressure 117/77 09/18/24 19:15 Pulse Oximetry 95 09/18/24 19:15 Oxygen Delivery Room Air 09/18/24 16:41 MDM - Abdominal Pain MDM Narrative Medical decision making narrative: Patient presents with an umbilical hernia that is become more uncomfortable and has not been able to be reduced. He notes it has been tender red and swollen. In the emergency department he is afebrile vital signs notable for mild hypertension. Patient's labs are generally unremarkable. CT imaging shows mild esophagitis/gastritis. Patient already has omeprazole listed on medication list. Umbilical hernia with inflammatory changes. After receiving pain medication applying ice, I was able to reduce the hernia at bedside and there were no longer any overlying skin changes although the edges of the area do have some slight edema consistent with the inflammation seen. We discussed strict ED return precautions and he and his verify understanding and are in agreement. He was provided referral contact information for general surgeon to discuss elective repair if desired. Differential Diagnosis Differential diagnosis: Likely abdominal pain, constipation, diverticulitis, small bowel obstruction and other (Reducible hernia, strangulation of hernia, incarcerated hernia) Lab Data Attestation: I reviewed the patient's lab results. 09/18/24 16:36 09/18/24 16:36 Labs: Lab Results 09/18/24 Range/Units 16:36 WBC 6.0 (4.5-10.0) K/mm3 RBC 5.08 (4.6-6.20) M/mm3 Hgb 15.9 (14.0-18.0) g/dL Hct 47.6 (42.0-52.0) % MCV 93.7 (80-100) fl MCH 31.3 (26-34) pg MCHC 33.4 (32-36) g/dl RDW 13.5 (11.5-14.5) % Plt Count 238 (150-375) k/mm3 MPV 9.0 (7.4-10.4) fl Immature Gran % (Auto) 0.3 (0-0.5) % Neut % (Auto) 67.6 (45.5-73.1) % Lymph % (Auto) 19.8 (18.3-44.2) % Bea[place]gard % (Auto) 10.0 H (2.6-8.5) % Eos % (Auto) 2.0 (0-4.4) % Baso % (Auto) 0.3 (0.2-1.2) % Lymph # (Auto) 1.19 (0.9-3.2) K/mm3 Bea[place]gard # (Auto) 0.6 (0.1-0.6) K/mm3 Eos # (Auto) 0.1 (0-0.3) K/mm3 Baso # (Auto) 0.0 (0.0-0.1) K/mm3 Abs Immat Gran (auto) 0.02 (0.00-0.031) K/mm3 Absolute Neuts (auto) 4.1 (1.3-6.7) K/mm3 Absolute Nucleated RBC 0.000 (0.0-0.012) K/mm3 Nucleated RBC % 0.0 (0.0-0.2) % PT 13.3 (11.1-14.7) Seconds INR 1.0 APTT 27.4 (22.3-36.8) Seconds Sodium 138 (137-145) mmol/L Potassium 4.0 (3.4-5.0) mmol/L Chloride 105 (98-107) mmol/L Carbon Dioxide 26 (22-30) mmol/L Anion Gap 7 (4-12) mmol/L BUN 11 (9-20) mg/dL Creatinine 1.06 (0.7-1.3) mg/dL Estim Creat Clear Calc 69 ml/min Estimated GFR > 60 (59 - ) Glucose 109 (65-110) mg/dL Lactic Acid 1.2 (0.7-2.0) mmol/L Calcium 9.7 (8.4-10.2) mg/dL Total Bilirubin 0.5 (0.2-1.3) mg/dL AST 29 (17-59) U/L ALT 30 (6-50) U/L Alkaline Phosphatase 91 (38-126) U/L Total Protein 7.3 (6.3-8.2) g/dL Albumin 4.1 (3.5-5.1) g/dL Urine Color Yellow (Yellow) Urine Appearance Clear (Clear) Urine pH 6.5 (5.0-9.0) Ur Specific [place] 1.005 (1.001-1.035) Urine Protein Negative (Negative) mg/dL Urine Glucose (UA) Negative (Negative) mg/dL Urine Ketones Negative (Negative) mg/dL Ur Blood (Man) Negative (Negative) Urine Nitrate Negative (Negative) Urine Bilirubin Negative (Negative) Urine Urobilinogen 0.2 (<2.0) mg/dL Leukocyte Esterase Rfl Negative (Negative) RICKY/UL Imaging Data Radiologist's impression: ITS Impressions Abdomen/Pelvis CT 09/18/24 18:13 IMPRESSION: Mild esophagitis/gastritis. Moderate sized, fat-containing umbilical hernia with mild inflammatory change. Discharge Plan Discharge Clinical Impression: Esophagitis with gastritis, Strangulated umbilical hernia Patient Disposition: Home Condition: Stable Instructions: Antibiotic Form, Gastritis (ED), Umbilical Hernia (ED), Esophagitis (ED) Additional Instructions: As we discussed, your hernia had gone from reducible to temporarily strangulated but not incarcerated and I was able to reduce it with the overlying skin changes improving. Acetaminophen/Tylenol (maximum 4000 mg per day) is safe to take with NSAIDs (ibuprofen/Motrin) for pain relief. Continue taking your other medications as prescribed. As we discussed, return to the emergency department with any new or worsening symptoms such as intractable pain, intractable nausea/vomiting, fever greater than 100.4? F, you stop passing gas/farting or having bowel movements, etc. Follow up with your PCP. In consideration and discussion of elective hernia repair, the name of a general surgeon is listed below for follow up if desired. Patient Language: Turkish Prescriptions: No Action albuterol sulfate [ProAir HFA] 90 mcg/actuation HFA aerosol inhaler 1 puff inhalation Q4H PRN Anoro Ellipta 62.5-25 mcg/actuation blister with device 1 inh inhalation DAILY zinc sulfate 50 mg zinc (220 mg) tablet 50 mg PO DAILY cholecalciferol (vitamin D3) 25 mcg (1,000 unit) capsule 25 mcg PO DAILY ascorbic acid (vitamin C) 1,000 mg capsule 1 g PO DAILY fluticasone propionate [Flonase Allergy Relief] 50 mcg/actuation spray,suspension 1 spray intranasal DAILY Rx Instructions: administer into each nostril Adult 50 Plus Probiotic 4 billion cell capsule 4,000 mmu cells PO DAILY Rx Instructions: administer with a meal omeprazole 20 mg capsule,delayed release(DR/EC) 20 mg PO DAILY (DME) blood-glucose meter Misc See Rx Instructions .ROUTE .MEDSUPPLY Qty: 1 0RF Rx Instructions: As directed (DME) lancets Misc See Rx Instructions .ROUTE .MEDSUPPLY Qty: 100 1RF Rx Instructions: use to test sugars BID (DME) blood sugar diagnostic Strip See Rx Instructions .ROUTE .MEDSUPPLY Qty: 100 2RF Rx Instructions: test sugars BID Follow-up/Referrals: Ronnie Serrano MD [Physician] - Yamilet Centeno PA-C [Primary Care Provider] - Stand Alone Forms: Work/School Release IP Time of Disposition: 18:42
[2024-09-18] MEDS: MORPHINE SULFATE (*CRX) 4 MG/ML INJ IV PUSH ×2 (16:39→18:43)
[2024-09-18 16:41] VITALS: BP 141/89; PULSE 84; RESP 18; O2SAT 96
[2024-09-18 16:46] LABS: Add Urine Microscopic? NO; Appearance Urine Clear (Clear); Glucose Urine UA Negative (Negative); Hematocrit 47.6 % (42.0-52.0); Hemoglobin 15.9 g/dL (14.0-18.0); Immature Granulocyte Percent A 0.3 % (0-0.5); Leukocyte Esterase Ur Negative LEU/UL (Negative); Lymphocytes Absolute Auto 1.19 K/mm3 (0.9-3.2); Mean Corpuscular HGB Conc 33.4 g/dl (32-36); Mean Corpuscular Hemoglobin 31.3 pg (26-34); Mean Corpuscular Volume 93.7 fl (80-100); Nitrate Urine Negative (Negative); Nucleated Red Blood Cells Absolute Auto 0.000 K/mm3 (0.0-0.012); Nucleated Red Blood Cells Perc 0.0 % (0.0-0.2); Platelet Count Result 238 k/mm3 (150-375); Red Blood Count 5.08 M/mm3 (4.6-6.20); Specific Grav Ur 1.005 (1.001-1.035); White Blood Count 6.0 K/mm3 (4.5-10.0)
[2024-09-18 17:01] VITALS: BP 124/76; PULSE 64; RESP 14; O2SAT 94
[2024-09-18 17:03] LABS: INR 1.0; Prothrombin Time 13.3 Seconds (11.1-14.7)
[2024-09-18 17:04] LABS: Partial Thromboplastin Time 27.4 Seconds (22.3-36.8)
[2024-09-18 17:11] LABS: Alanine Aminotransferase 30 U/L (6-50); Albumin Level 4.1 g/dL (3.5-5.1); Alkaline Phosphatase 91 U/L (38-126); Anion Gap 7 mmol/L (4-12); Aspartate Amino Transferase 29 U/L (17-59); Bilirubin,Total 0.5 mg/dL (0.2-1.3); Blood Urea Nitrogen 11 mg/dL (9-20); Calcium 9.7 mg/dL (8.4-10.2); Carbon Dioxide 26 mmol/L (22-30); Chloride 105 mmol/L (98-107); Estimated CRCL calculation 69 ml/min; Estimated Glomerular Filt Rate > 60; Glucose 109 mg/dL (65-110); Potassium 4.0 mmol/L (3.4-5.0); Sodium 138 mmol/L (137-145); Total Protein 7.3 g/dL (6.3-8.2)
[2024-09-18 18:10] VITALS: BP 121/82; PULSE 79; RESP 16; O2SAT 94
[2024-09-18 18:31] VITALS: BP 135/87; PULSE 83; RESP 17; O2SAT 98
[2024-09-18] MEDS: KETOROLAC 15 MG/ML VIAL (*BKC) IV PUSH (18:48)
[2024-09-18 19:15] VITALS: BP 117/77; PULSE 73; RESP 16; O2SAT 95
== END 2024-09-18 19:32 | disposition home or self-care (01) ==
PROVIDERS: Emergency Provider Student in an Organized Health Care Education/Training Program; PCP Physician Assistant Medical
DX: K42.0 Umbilical hernia with obstruction, without gangrene (principal); K20.90 Esophagitis, unspecified without bleeding; K29.70 Gastritis, unspecified, without bleeding; J44.9 Chronic obstructive pulmonary disease, unspecified; K21.9 Gastro-esophageal reflux disease without esophagitis
CPT/HCPCS: 36415; 74177; 80053; 81003; 83605; 85025; 85610; 85730; 96374; 96375; 96376; 99284; J1885; J2270; Q9967

== ENCOUNTER 2024-10-15 07:38 | Outpatient (CLI) | payer OTHER, SELFPAY ==
--- OUTSIDE RECORDS SUMMARY | 2024-10-15 07:42 | XMS_ITS | Encounter Summary ---
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 Visit [facility] [address] [address] Larry Carlson MD [address] [place] [id number] documented as of this encounter Results * PRE-SURGICAL/PRE-PROCEDURE CORONAVIRUS (COVID 19) (08/16/2019 7:21 AM CDT) CORONAVIRUS SARS COV 2 PCR (RESP) NOT DETECTED NOT DETECTED 08/17/2019 6:24 PM CDT [email or web address] Comment: A Not Detected (negative) test result [...] providers and patients using the following websites: https://[email or web address]/home/Covid-19/HCP/NAAT/fact-sheet2 https://[email or web address].Prismatic/home/Covid-19/Patients/NAAT/ fact-sheet2 This test has been authorized by the FDA under an Emergency Use Authorization (EUA) for use by authorized laboratories. Due to the current public health emergency, [facility] is receiving a high volume of samples [...] about COVID-19 can be found at the [facility] website: www.DigiMeld/Covid19. Test performed at [email or web address] [id number] [place] [phone] Director: ZABRINA WOLFE DO,MPH NASOPHARYNGEAL SWAB / Unknown 08/16/2019 7:21 AM CDT us Marek Morley MD MICROBIOLOGY - GENERAL ORDERABLE S Final Result [email or web address] [address] [address] documented in this encounter Visit Diagnoses Diagnosis Preoperative testing- Primary Preoperative examination, unspecified documented in this encounter Additional Health Concerns Infection Onset Date Last Indicated Resolved Time COVID-19 Rule Out 08/16/2019 08/16/2019 08/17/2019 6:24 PM CDT COVID-19 Rule Out 04/08/2020 04/08/2020 04/09/2020 3:18 PM 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
--- OUTSIDE RECORDS SUMMARY | 2024-10-15 07:42 | XMS_ITS | Encounter Summary ---
Author Organization [facility] Address [facility] [place] [address] Care Team Providers Care Police Academy Instructor Name Role Phone Dez Flannery MD Primary Care Provider [phone] Yamilet Centeno Primary Care Provider [phone] Encounter Details Date Type Department Care Team (Late st Contact Info) Description 02/11/2021 Prep for Procedure [facility] Day [facility] [address] [place] [address] [place] [address] [facility] [address] [place] [address] Social History Tobacco Use Types [...] COVID-19? 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 documented as of this encounter Plan of Treatment Upcoming Encounters Date Type Department Care Team (Late st Contact Info) Description 02/14/2025 8:20 AM METER TESTER PRIMARY Office Visit [facility] [address] [place] [address] Larry Carlson MD [address] [place] [phone] documented as of this encounter Results * MRSA SCREENING (02/12/2021 4:45 PM METER TESTER PRIMARY) SPEC DESCRIPTION NASAL 02/12/2021 4:40 PM METER TESTER PRIMARY [facility] SPECIAL REQUESTS NO SPECIAL REQUEST 02/12/2021 4:40 PM METER TESTER PRIMARY [facility] CULTURE RESULT NO METHICILLIN RESISTANT STAPHYLOCOCCUS AUREUS ISOLATED 02/14/2021 7:32 AM METER TESTER PRIMARY [facility] SPECIMEN FROM INTERNAL NOSE / Unknown 02/12/2021 4:45 PM METER TESTER PRIMARY 02/12/2021 4:46 PM METER TESTER PRIMARY us Kodak Whitten MD MICROBIOLOGY - GENERAL ORDERABLE S Final Result Performing Organization Address City/State/[facility] Co de Phone Number [facility] [address] [place] [address], [place] [phone] [facility] [address] [place] [address], [place] [phone] documented in this encounter Visit Diagnoses Diagnosis Pre-op testing- Primary Preoperative examination, unspecified documented in this encounter Additional Health Concerns Infection Onset Date Last Indicated Resolved Time Respiratory Rule Out 06/25/2024 06/25/20242 025 10:41 AM CDT COVID-19 Rule Out 06/25/2024 06/25/2024 06/25/2024 10:36 AM CDT documented as of this encounter Care Teams Police Academy Instructor Relationship Specialty Start Date End Date Dez Flannery MD PCP - General INTERNAL MEDICINE 03/01/18 06/24/24 Yamilet Centeno PA [address] [place] [id number] PCP - General PHYSICIAN READING COACH 06/25/24 documented as of this encounter
--- OUTSIDE RECORDS SUMMARY | 2024-10-15 07:42 | XMS_ITS | Clinical Summary ---
Author Organization [facility] Address [address] [place] [address] Care Team Providers Care Ground Support Equipment Assembler Name Role Phone Yamilet Centeno Primary Care Provider [phone] Allergies No known active allergies Medications vitamin D3, cholecalciferol , 1000 UNIT Tab tablet Take 1 tablet (25 mcg total) by mouth daily. Active albuterol sulfate HFA 108 (90 Base) MCG/ACT inhalerIndicati ons:Chronic bronchitis, unspecified chronic bronchitis type ([facility] HHS/HCC) Inhale 1-2 puffs into the lungs every 4 (four) hours as needed for Wheezing or Shortness of breath. 18 g 5 3 Active Albuterol-Budes onide (AIRSUPRA) 90-80 MCG/ACT AerosolIndicati ons:Chronic bronchitis, unspecified chronic bronchitis type (CMS/HCC HHS/HCC) Inhale 2 puffs into the lungs every 4 (four) hours as needed. 10.7 g 11 4 Active ANORO ELLIPTA 62.5-25 MCG/ACT inhalerIndicati ons:Abnormal PFT Inhale 1 puff into the lungs daily. 1 each 11 4 Active fluticasone propionate (FLONASE) 50 MCG/ACT nasal sprayIndication s:Chronic bronchitis, unspecified chronic bronchitis type ([facility]/HCC HHS/HCC) 1 spray by Nasal route daily. 16 g 11 4 Active ipratropium-alb uterol (DUONEB) 0.5-2.5 (3) MG/3ML SolutionIndicat ions:Chronic bronchitis, unspecified chronic bronchitis type ([facility]) Take 3 mLs by nebulization every 6 (six) hours as needed (shortness of breath, wheezing). 360 mL 2 4 Active Active Problems Problem Noted Date Diagnosed Date Unilateral inguinal hernia, without obstruction or gangrene, not specified as recurrent 02/05/2021 Overview (02/05/2021): Added automatically from request for surgery [id number] Diffusion capacity of lung (dl), decreased 05/09 Occupational exposure to dust 03/01/2018 Abnormal PFT 03/01/2018 Chronic bronchitis, unspecif ied chronic bronchitis type ([facility]) 03/01/2018 Disorder of lung 06/16/2013 Acute bronchitis 12/22/2011 Resolved Problems Problem Noted Date Diagnosed Date Resolved Date Gastroesophageal reflux dise ase, esophagitis presence not specified 03/01/2018 01/31/2021 Encounter for preventive health examination 12/22/2011 11/11/2019 Immunizations Immunization Administration Dates Next Due Afluria [...] st Contact Info) Description 02/14/2025 8:20 AM ZIPPER TRIMMER HAND Office Visit [facility] [address] [address] Larry Carlson MD [address] [place] [address] [phone] Health Maintenance Due Date Last Done Comments [...] season) 2023 02/01/2021, 06/01/2020, 05/13/2020 PHQ-2 (Physician [facility]) 03/02/2024 01/13/2023 Colorectal Cancer Screening Colonoscopy (10 [...] this topic Medical Devices Implanted Type Area Contract Coordinator Device Identifier Shelf Expiration Date Model / Serial / Lot Plug Large Light Mesh - [id number] Implanted:Qty: 1 on 02/21/2021 by Kodak Whitten MD at [facility] Mesh Right: Inguinal [employer] 07/27/2025 [id number] / / [id number] Mesh Surgical Bard Marlex 4x1.8in Groin Monofilament Gold Standard Preshape Sterile Polypropylene Rectangle Inguinal Hernia Repair - [id number] Implanted:Qty: 1 on 02/21/2021 by Kodak Whitten MD at [facility] Mesh Right: Inguinal [employer] 11/27/2024 [id number] / / [id number] Insurance [employer] Care Teams Ground Support Equipment Assembler Relationship Specialty Start Date End Date Yamilet Centeno PA [address] [place] [id number] PCP - General PHYSICIAN SITE DIRECTOR 4/26/25
== END 2024-10-15 07:39 | disposition home or self-care (01) ==
LOC: ANHLAB 07:40
PROVIDERS: PCP Physician Assistant Medical; Visit Provider Anesthesiology
DX: K43.6 Other and unspecified ventral hernia with obstruction, without gangrene (principal)
CPT/HCPCS: 36415; 86850; 86900; 86901

== ENCOUNTER 2024-10-21 02:33 | Day surgery (SDC) | payer OTHER, SELFPAY ==
[2024-10-12 13:40] VITALS: BMI 26.1
--- NOTE | 2024-10-12 13:41 | PC.NURSE ---
Report to the Outpatient Waiting Room, entrance under the green pavilion located off [facility], at time _0830_ on date _[id number]_. Planned Procedure Time: _1030_.? Time changes happen often and if your time is changed the preop area will call you the afternoon before. - You and your visitor will be asked to self-screen and do not enter if you have any COVID symptoms. Please call surgeon if you need to reschedule. - A mask is optional within the hospital at this time. Patients may have clear liquids (water, carbonated beverages, clear teas, apple juice) until 3 hours prior to surgery with a maximum of 20 ounces. - No food from midnight until time of surgery and no smoking, or chewing tobacco (or any form of nicotine). No chewing gum, candy or mints. Take only the following medications with a SIP of water on the morning of surgery: ___Anoro ellipta, Flonase and if needed Albuterol____ DO NOT STOP ANY OF YOUR OTHER PRESCRIPTION MEDICATIONS PRIOR TO SURGERY EXCEPT THE FOLLOWING Hold all vitamins and supplements for 3 days per anesthesiologist. Medications to discontinue per physician Date to take last gufh___[phone]____ Please no make-up, nail nigerian, hairspray, perfume, deodorant, or body powder the day of surgery.? No jewelry (including any body piercings) or valuables the day of surgery, leave them at home.? Please take a shower or bath the night before, or the morning of, surgery with an antibacterial soap.? Wear comfortable, loose fitting clothing.? - Jewelry must be removed prior to entering the operating room.? Rings and piercings that are not removed may be cut off. - The hospital will not accept responsibility for valuables.? - Please leave all valuables, including medications, at home the day of surgery. If you are going home after surgery, a licensed dray truck driver must drive you home.? - NO public transportation without another adult if you receive anesthesia. - We recommend that an adult stay with you for 24 hours following discharge. - We also recommend that you do not drive, make important decision, drink alcoholic beverages, or take any drugs that were not prescribed by your health care provider for at least 24 hours after your discharge time. Follow any additional instructions given to you from your surgeon. Telephone instructions given to __Tim__and asked if any additional questions and then verbalized understanding. Patient advised to call surgeon office or pre surgery nurse liaison [phone] if any additional questions.
[2024-10-21] VITALS (11 sets, daily range): BP systolic 107–140; BP diastolic 66–87; PULSE 80–95; RESP 14–18; TEMP 36.5–37.1; O2SAT 92–100
--- NOTE | 2024-10-21 07:26 | WPDANESEPPF ---
Anes - Initial Pre Proc Eval Procedure: Operation Date: 10/21/24 10:30 Proposed Procedures p Robotic Assisted Laparoscopic Incarcerated Extended Totally Extraperitoneal Ventral Hernia Repair with Synecore Mesh - Gomez Cavanaugh MD Date/Time: 10/21/24 07:26 Surgeon: Gomez Cavanaugh MD Pre Op Diagnosis: incarc periumb ventral hernia(2cm),epigastric freeman Patient Data Age: 64 Gender: M Height: 1.83 m Weight: 87.3 kg Allergies Allergy/AdvReac Type Severity Reaction Status Date / Time fluticasone furoate (From AdvReac thrush Verified 10/12/24 13:31 Breo Ellipta) vilanterol (From Breo AdvReac thrush Verified 10/12/24 13:31 Ellipta) Home Medications ?Medication ?Instructions ?Recorded ?Confirmed ?Type albuterol sulfate 90 mcg/actuation 1 puff inhalation Q4H PRN 03/05/22 10/12/24 History aerosol inhaler (ProAir HFA) shortness of breath or wheezing umeclidinium 62.5 mcg-vilanterol 1 inh inhalation DAILY 03/05/22 10/12/24 History 25 mcg/actuation powdr for inhalation (Anoro Ellipta) ascorbic acid (vitamin C) 1,000 mg 1 g PO DAILY 06/30/24 10/12/24 History capsule blood sugar diagnostic #100 ea 06/30/24 10/12/24 Rx blood-glucose meter #1 ea 06/30/24 10/12/24 Rx cholecalciferol (vitamin D3) 25 25 mcg PO DAILY 06/30/24 10/12/24 History mcg (1,000 unit) capsule fluticasone propionate 50 1 spray intranasal DAILY 06/30/24 10/12/24 History mcg/actuation nasal spray,suspension (Flonase Allergy Relief) lactobacillus combination no.9 4 4,000 mmu cells PO DAILY 06/30/24 10/12/24 History billion cell capsule (Adult 50 Plus Probiotic) lancets #100 ea 06/30/24 10/12/24 Rx omeprazole 20 mg capsule,delayed 20 mg PO DAILY 06/30/24 10/12/24 History release zinc sulfate 50 mg zinc (220 mg) 50 mg PO DAILY 06/30/24 10/12/24 History tablet Patient hx anesthesia problems: none Family hx anesthesia problems: none Results Review: All pre-operative results and documents have been reviewed as part of the pre-operative evaluation. [facility] Past Medical History Medical History Umbilical hernia GERD (gastroesophageal reflux disease) COPD exacerbation Chronic obstructive pulmonary disease Surgical History Surgical History H/O inguinal hernia repair Jan 2021, [facility] Social History Social History (Updated 10/03/24 @ 08:38 by Constantino Atkinson) Social History: 06/23/24 very confident with medical forms 10/03/24 patient declined SDOH Smoking status: Never smoker Alcohol intake: current Substance use: never Substance use type: does not use Do You Feel Safe in your Home?: Yes Lack of Transportation: No Lack of Food: Never True Current Housing: I Have Housing Concerned About Future Housing: No Difficulty Paying Gas/Electric Bills: No Difficulty Paying for Meds: No Currently Unemployed: No Education: Associate Degree Difficulty w/ Childcare or Family Care: No Living arrangements: with family Occupation/Education: occupation Additional occupation/education comments: [employer] at [employer] Gender identity (if verbalized by the patient): Male Sexual Orientation (if Verbalized by the Patient): Straight or Heterosexual Spiritual care concerns: No Agree to blood products: Yes Anes - Eval Final PreProcedure Day of Procedure 10/21/24 07:26 Patient weight: overweight Heart: regular rate and rhythm Lungs: clear to auscultation Airway: Mallampati scale class II Neurological: alert and oriented Last oral intake: >/= 8 hours ASA classification: III Emergent: no Anesthetic plan: proceed Anesthesia type and monitoring: general GIVS and standard monitoring Results Review: All pre-operative results and documents have been reviewed as part of the pre-operative evaluation. Informed Consent: The patient's anesthetic plan and its attendant risks and benefits were discussed with the patient/family/POA. Questions were solicited and answers provided to the satisfaction of the patient/family/POA.
--- NOTE | 2024-10-21 09:19 | WPDHPUPDATE1 ---
History and Physical Update Update Date/Time: 10/21/24 09:19 History and Physical has been reviewed, including an updated exam of the patient. There are NO changes in the patient's condition. Risks, benefits, and alternatives have been discussed and questions answered. Patient agrees to proceed with procedure.
[2024-10-21] MEDS: LACTATED RINGERS 1,000 ML 30 ML IV CONT ×3 (09:30→13:46)
[2024-10-21] MEDS: ACETAMINOPHEN 500 MG TABLET 1000 MG PO (09:30)
[2024-10-21] MEDS: KETOROLAC 15 MG/ML VIAL (*BKC) IV PUSH ×2 (09:30→12:13)
[2024-10-21] MEDS: ceFAZolin 2 GM in SODIUM CHLORIDE 0.9% IV 50 ML 100 ML IVPB (09:39)
[2024-10-21] MEDS: LIDO 1%/EPINEPHRINE 1:100,000 50 ML VIAL 30 ML INFILTRATE (10:31)
[2024-10-21] MEDS: BUPivacaine HCL 0.5% 10 ML AMP 30 ML INFILTRATE (10:32)
[2024-10-21] MEDS: fentaNYL CITRATE INJ (*CRX) 100 MCG/2 ML VIAL 25 MCG IV PUSH ×4 (13:28→13:42)
[2024-10-21] MEDS: oxyCODONE HCL (*CRX) 5 MG TAB IR PO (14:47)
--- NOTE | 2024-10-21 18:20 | P.OP_ITS ---
Procedure Note - Detailed Date of Procedure 10/21/24 Pre-op Diagnosis Incarcerated periumbilical ventral hernia with epigastric abdominal diastasis. Post-op Diagnosis Other (Incarcerated periumbilical and epigastric ventral hernias x2 with epigastric abdominal wall diastasis.) Procedure Performed Robotic assisted laparoscopic eTEP incarcerated ventral hernia repairs x2 (defect = 2 cm and 0.5 cm) with [place]on Synecor mesh, bilateral abdominal wall myofascial release. Surgeon Gomez Cavanaugh MD Dealer Analyst Larissa Ruby [facility] Anesthesia General Indications Patient is a 64-year-old male who presented with a longstanding incarcerated periumbilical ventral hernia. It was enlarging starting to cause pain. CT scan of the abdomen pelvis reveal the contents of the hernia to be omentum and there was no evidence of bowel involvement. Presented for robotic assisted laparoscopic a eTEP repair with mesh with bilateral myofascial release. Findings The patient incarcerated periumbilical ventral hernia with omentum within the hernia sac. The defect measured 2cm in greatest diameter. The patient also had a 2nd much smaller epigastric abdominal wall hernia defect measuring 0.5cm in diameter with incarcerated omentum as well. The 2nd defect was located approximately 5cm cephalad to the periumbilical hernia defect. Description of Procedure After informed consent was obtained patient brought to the operating room was placed supine position and general endotracheal anesthesia was administered. A Velasquez catheter was placed decompress the bladder. A time-out was then performed correctly identifying the patient as well as procedure to be performed. He was given perioperative IV antibiotics. I 1st started to gain access into the left retrorectus space to perform the left myofascial abdominal wall release. A 5mm Optiview port was used to enter in the left upper quadrant over the midportion of the rectus muscle through the anterior rectus fascia. Once I entered into the retrorectus space I then initially used the laparoscopic to bluntly dissect and insufflate to achieve a space in the left retrorectus space. Dissected laterally out to the semilunar line and then placed a 8mm robotic trocar port the mid the left lateral abdominal wall under direct visualization. I then used a laparoscopic hook cautery device to then assist with division of the areolar tissue and to separate the posterior rectus fascia from the rectus muscle fibers. I dissected medially to the linea alba. In the epigastric portion of the abdomen there was a wide diastasis measuring approximately 5cm in diameter and 15 cm in length. This extended from the umbilicus all the way up to the near the xiphoid process. I then continued my dissection of the left retrorectus space inferiorly and identified the inferior epigastric vessels and left these adherent with the rectus muscle fibers. I dissected down until I could place another 8mm robotic trocar port under direct visualization in the le ft lower quadrant. I then switched out the 5 mm laparoscopic trocar port in the left upper quadrant to a 12mm laparoscopic trocar port and then placed 1 more additional 8mm robotic trocar port in left upper quadrant. The Teez[employer]mobi robot was then brought to the patient's bedside and docked. The robotic arms were then attached the robotic ports. I then scrubbed out and sat down the robotic console to perform the remaining portion dissection robotically. Utilizing robotic hook cautery I continued dissection of the left retrorectus space to release almost the entirety of the left rectus muscle. The upper medial aspect the left posterior sheath was incised and I entered into the preperitoneal space in the upper epigastric region and then transitioned to the contralateral retrorectus space on the right side. In order to continue the repair and improve medialization of the anterior rectus sheaths for the purpose of reconstruction of the linea alba due to the large diastasis and ventral hernia defect, the next level of myofascial release had to be performed. The contralateral right-sided rectus sheath was then incised and dissected and release of the right rectus muscle was performed all the way to the right semilunaris line. Neurovascular bundles were identified and preserved. The right retrorectus muscular space was created cranial and caudal to the hernia defect. I then incised the tissue around the hernia sac and opened the hernia sac to find incarcerated omentum. In the mid epigastric region there was a 2nd small hernia measuring approximately 0.5cm in diameter. Within it was some incarcerated omentum. The larger periumbilical hernia defect measured approximately 2cm in diameter. The distance between these 2 defects was approximately 5cm. Once I had all the contents of the incarcerated hernia defects reduced I then closed the defects in the hernia sacs. This was done with a running 3-0 absorbable V lock suture. Since the patient had significant diastasis in addition to the midline defects, the previous described myofascial releases bilaterally allowed for myofascial medialization for the purpose of presybeterian of the linea alba. I then proceeded to close the to hernia defects and restore the linea alba by approximation of the more robust edges of the bilateral rectus muscles to the midline utilizing a running nonabsorbable 0 V lock suture placed in a mattress fashion. Once this was done I then measured the dissected space and felt that piece of Synecor pre mesh measuring [id number] would be used for the repair. The mesh was then fashioned and cut rounding the corners off to conform with the dissected space. It was then rolled up and introduced through the 12mm left upper quadrant trocar port site. I then laid the mesh out over the posterior rectus fascia and the mesh laid out very nicely with wide overlap of the closed defects and restored linea alba. No additional fixation of the mesh was performed. I then scrubbed back into the procedure at the bedside and the robotic instruments were removed from the abdomen and the robot was undocked from the patient's bedside. With the use of the robotic laparoscopic I then visualized the mesh once more and again laid out very nicely. There was no significant bleeding in the dissected space. I then removed all the robotic trocar ports allowed the abdomen decompress all the whi le viewing the mesh in making sure that it stayed flat as the retrorectus space evacuated the pneumoperitoneum. Once all the ports had been removed I then irrigated all the port sites sterile saline solution. The 12mm left upper quadrant trocar port was then closed utilizing 0 Vicryl suture at the anterior rectus fascial defect. The mesh did extend laterally to cover all the robotic trocar port fascial defects. I then closed all the port sites at the skin level utilizing a running subcuticular 4-0 Monocryl suture. The port sites were then injected with 1% lidocaine mixed with 0.5% Marcaine in a 50 50 mixture with some epinephrine for postoperative pain relief. The port site incisions were then covered with skin glue. An abdominal binder was then placed. The patient tolerated the procedure well no complications. All sponges, needles, and instrument counts were correct at the end procedure. EBL was _20__cc. The patient was awakened and taken to recovery in stable and satisfactory condition. Implants Mendon Synecor pre mesh placed in the retrorectus position measuring [id number] cut to an oval configuration. Estimated Blood Loss 20 Drains No Packing No Pathology None sent Complications No immediate complications Condition Stable Disposition PACU [facility] Billing Surgery - Charge Forward: Surgery Billing
== END 2024-10-21 15:40 | disposition home or self-care (01) ==
PROVIDERS: PCP Physician Assistant Medical; Visit Provider Surgery
PROC: (CPT 49592; principal; 2024-10-21 10:30)
DX: K43.6 Other and unspecified ventral hernia with obstruction, without gangrene (principal); M62.08 Separation of muscle (nontraumatic), other site; K21.9 Gastro-esophageal reflux disease without esophagitis; J44.9 Chronic obstructive pulmonary disease, unspecified; Z98.890 Other specified postprocedural states; Z79.51 Long term (current) use of inhaled steroids
CPT/HCPCS: 49592; S2900; J0690; A9270; J1100; J1885; J2003; J2004; J2250; J2371; J2405; J2704; J3010; J7120

== ENCOUNTER 2024-12-21 14:46 | Outpatient (CLI) | payer OTHER, SELFPAY ==
[2024-12-21 16:00] LABS: Cholesterol 184 mg/dL (0-200); HDL Direct 52 mg/dL; Triglycerides 60 mg/dL (<150)
[2024-12-21 16:36] LABS: Prostate Specific Antigen 2.1 ng/mL (< OR = 4.0)
--- OUTSIDE RECORDS SUMMARY | 2024-12-21 19:03 | XMS_ITS | Clinical Summary ---
Author Organization [facility] Address [address] [place] [address] Care Team Providers Care Meterman Name Role Phone Yamilet Centeno Primary Care Provider [phone] Allergies No known active allergies Medications vitamin D3, cholecalciferol , 1000 UNIT Tab tablet Take 1 tablet (25 mcg total) by mouth daily. Active albuterol sulfate HFA 108 (90 Base) MCG/ACT inhalerIndicati ons:Chronic bronchitis, unspecified chronic bronchitis type ([facility] HHS/HCC) Inhale 1-2 puffs into the lungs every 4 (four) hours as needed for Wheezing or Shortness of breath. 18 g 5 3 Active Albuterol-Budes onide (AIRSUPRA) 90-80 MCG/ACT AerosolIndicati ons:Chronic bronchitis, unspecified chronic bronchitis type ([facility] HHS/HCC) Inhale 2 puffs into the lungs every 4 (four) hours as needed. 10.7 g 11 4 Active ANORO ELLIPTA 62.5-25 MCG/ACT inhalerIndicati ons:Abnormal PFT Inhale 1 puff into the lungs daily. 1 each 11 4 Active fluticasone propionate (FLONASE) 50 MCG/ACT nasal sprayIndication s:Chronic bronchitis, unspecified chronic bronchitis type ([facility] HHS/HCC) 1 spray by Nasal route daily. 16 g 11 4 Active ipratropium-alb uterol (DUONEB) 0.5-2.5 (3) MG/3ML SolutionIndicat ions:Chronic bronchitis, unspecified chronic bronchitis type ([facility]/HCC [facility]) Take 3 mLs by nebulization every 6 (six) hours as needed (shortness of breath, wheezing). 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 Office Visit [facility] - [address] [address] Larry Carlson MD [address] [place] [phone] Health Maintenance Due Date Last Done Comments Annual Physical 1963 Hepatitis C 08/04/1979 DTaP, Tdap and Td Vaccines (1 - Tdap) 1980 Pneumococcal Vaccine: 50+ Years (1 of 2 - PCV) 1980 Zoster Vaccines (1 of 2) 08/04/2011 RSV Immunization or 60+ Years (1 - Risk 60-74 years 1-dose series) 2021 PHQ-2 (Physician [place]) 03/02/2024 01/13/2023 COVID-19 Vaccine ( - season) 2024 02/01/2021, 06/01/2020, 05/13/2020 Influenza Adult (#1) 2024 11/15/2023, 10/31/2020, 11/09/2019, Additional history exists Colorectal Cancer Screening Colonoscopy (10 Years) 08/18/2029 08/19/2019 Hepatitis A Vaccines Aged Out No long er eligible based on patient's age to complete this topic Meningococcal B Vaccine Aged Out No l onger eligible based on patient's age to complete this topic Meningococcal Vaccine Aged Out No jaime nohemy eligible based on patient's age to complete this topic RSV Immunizations Under 20 Months Aged Out No longer eligible based on patient's age to complete this topic Medical Devices Implanted Type Area Roll Clamp Operator Device Identifier Shelf Expiration Date Model / Serial / Lot Plug Large Light Mesh - [id number] Implanted:Qty: 1 on 02/21/2021 by Kodak Whitten MD at [facility] Mesh Right: Inguinal [employer] 07/27/2025 [id number] / / [id number] Mesh Surgical Bard Marlex 4x1.8in Groin Monofilament Gold Standard Preshape Sterile Polypropylene Rectangle Inguinal Hernia Repair - [id number] Implanted:Qty: 1 on 02/21/2021 by Kodak Whitten MD at [facility] Mesh Right: Inguinal [employer] - [employer] 11/27/2024 [id number] / / [id number] Insurance A[employer] Care Teams Meterman Relationship Specialty Start Date End Date Yamilet Centeno PA [address] [place] [id number] PCP - General PHYSICIAN HANG GLIDING INSTRUCTOR 06/25/24
--- OUTSIDE RECORDS SUMMARY | 2024-12-21 19:03 | XMS_ITS | Encounter Summary ---
Author Organization [facility] Address [address] [place] [address] Care Team Providers Care Sap Bw Consultant Name Role Phone Dez Flannery MD Primary Care Provider Yamilet Centeno Primary Care Provider [phone] Encounter Details Date Type Department Care Team (Late st Contact Info) Description 08/15/2019 Prep for Procedure [facility] [address] [place], [place] [id number] Marek Morley MD [address] [place] [phone] Social History Tobacco Use Types Packs/Day Years [...] st Contact Info) Description 02/14/2025 8:20 AM CLEARING DISTRIBUTION CLERK Office Visit [facility] [address] [address] Larry Carlson MD [address] [place] [address] documented as of this encounter Results * PRE-SURGICAL/PRE-PROCEDURE CORONAVIRUS (COVID 19) (08/16/2019 7:21 AM CDT) CORONAVIRUS SARS COV 2 PCR (RESP) NOT DETECTED NOT DETECTED 08/17/2019 6:24 PM CDT [facility] Comment: A Not Detected (negative) test result [...] providers and patients using the following websites: https://[email or web address]/home/Covid-19/HCP/NAAT/fact-sheet2 https://www.[employer].[email or web address]/home/Covid-19/Patients/NAAT/ fact-sheet2 This test has been authorized by the FDA under an Emergency Use Authorization (EUA) for use by authorized laboratories. Due to the current public health emergency, [facility] is receiving a high volume of samples [...] about COVID-19 can be found at the [employer] website: www.iwi/Covid19. Test performed at [facility] [place] [address] [place] [phone] Director: ZABRINA WOLFE DO,MPH NASOPHARYNGEAL SWAB / Unknown 08/16/2019 7:21 AM CDT us Marek Morley MD MICROBIOLOGY - GENERAL ORDERABLE S Final Result [facility] [address] [address] documented in this encounter Visit Diagnoses Diagnosis Preoperative testing- Primary Preoperative examination, unspecified documented in this encounter Additional Health Concerns Infection Onset Date Last Indicated Resolved Time COVID-19 Rule Out 08/16/2019 08/16/2019 08/17/2019 6:24 PM CDT COVID-19 Rule Out 04/08/2020 04/08/2020 04/09/2020 3:18 PM CLEARING DISTRIBUTION CLERK Respiratory Rule Out 06/25/2024 06/25/2024 025 10:41 AM CDT COVID-19 Rule Out 06/25/2024 06/25/2024 06/25/2024 10:36 AM CDT documented as of this encounter Care Teams Sap Bw Consultant Relationship Specialty Start Date End Date Dez Flannery MD PCP - General INTERNAL MEDICINE 03/01/18 06/24/24 Yamilet Centeno PA [address] [place] [id number] PCP - General PHYSICIAN LIQUID FLOOR AND WALL APPLIER 06/25/24 documented as of this encounter
--- OUTSIDE RECORDS SUMMARY | 2024-12-21 19:03 | XMS_ITS | Encounter Summary ---
Author Organization [facility] Address [facility] [place] [address] Care Team Providers Care Service Desk Analyst Name Role Phone Dez Flannery MD Primary Care Provider [phone] Yamilet Cenetno Primary Care Provider [phone] Encounter Details Date Type Department Care Team (Late st Contact Info) Description 02/11/2021 Prep for Procedure [facility] Day [facility] [id number] [place] [address] [place] [address] [facility] [address] [place] [address] Social History Tobacco Use Types [...] COVID-19? No / Unsure 02/12/2021 4:38 PM ABLE BODIED WATCHMAN documented as of this encounter Plan of Treatment Upcoming Encounters Date Type Department Care Team (Late st Contact Info) Description 02/14/2025 8:20 AM ABLE BODIED WATCHMAN Office Visit [facility] [address] [place] [phone] Larry Carlson MD [address] [place] [address] documented as of this encounter Results * MRSA SCREENING (02/12/2021 4:45 PM ABLE BODIED WATCHMAN) SPEC DESCRIPTION NASAL 02/12/2021 4:40 PM ABLE BODIED WATCHMAN [facility] SPECIAL REQUESTS NO SPECIAL REQUEST 02/12/2021 4:40 PM ABLE BODIED WATCHMAN [facility] CULTURE RESULT NO METHICILLIN RESISTANT STAPHYLOCOCCUS AUREUS ISOLATED 02/14/2021 7:32 AM ABLE BODIED WATCHMAN [facility] SPECIMEN FROM INTERNAL NOSE / Unknown 02/12/2021 4:45 PM ABLE BODIED WATCHMAN 02/12/2021 4:46 PM ABLE BODIED WATCHMAN us Kodak Whitten MD MICROBIOLOGY - GENERAL ORDERABLE S Final Result Performing Organization Address City/State/[facility] de Phone Number [facility] [address] [place] [address], [place] [phone] [facility] [address] [place] [address], [place] [phone] documented in this encounter Visit Diagnoses Diagnosis Pre-op testing- Primary Preoperative examination, unspecified documented in this encounter Additional Health Concerns Infection Onset Date Last Indicated Resolved Time Respiratory Rule Out 06/25/2024 06/25/2024 025 10:41 AM CDT COVID-19 Rule Out 06/25/2024 06/25/2024 06/25/2024 10:36 AM CDT documented as of this encounter Care Teams Service Desk Analyst Relationship Specialty Start Date End Date Dez Flannery MD PCP - General INTERNAL MEDICINE 03/01/18 06/24/24 Yamilet Centeno PA [address] [place] [phone] PCP - General PHYSICIAN GEAR KEEPER 06/25/24 documented as of this encounter
== END 2024-12-21 14:47 | disposition home or self-care (01) ==
PROVIDERS: PCP Physician Assistant Medical; Visit Provider Physician Assistant Medical
DX: R73.9 Hyperglycemia, unspecified (principal); E55.9 Vitamin D deficiency, unspecified; Z00.00 Encounter for general adult medical examination without abnormal findings; Z12.5 Encounter for screening for malignant neoplasm of prostate
CPT/HCPCS: 36415; 80061; 82306; 84153; G0103